=== PATIENT | male | born 1955 | race Caucasian/White ===

== ENCOUNTER 2024-02-01 10:58 | Outpatient (RCR) | payer OTHER, SELFPAY | END 2024-02-01 23:59 | disposition home or self-care (01) | LOC: RPT 10:58 | PROVIDERS: ATTENDING PHYSICIAN Family Medicine | DX: M76.01 Gluteal tendinitis, right hip (principal); M54.16 Radiculopathy, lumbar region; Z73.6 Limitation of activities due to disability; G89.29 Other chronic pain; M62.81 Muscle weakness (generalized) | CPT/HCPCS: 97010; 97110; 97162 ==

== ENCOUNTER 2024-02-24 08:53 | Outpatient (RCR) | payer OTHER, SELFPAY | END 2024-02-24 10:03 | disposition home or self-care (01) | LOC: RPT 08:53 | PROVIDERS: ATTENDING PHYSICIAN Family Medicine | DX: M76.01 Gluteal tendinitis, right hip (principal); M54.16 Radiculopathy, lumbar region; Z73.6 Limitation of activities due to disability; G89.29 Other chronic pain | CPT/HCPCS: 97010; 97110 ==

== ENCOUNTER → 2024-06-13 13:26 | Outpatient (REF) | payer OTHER, SELFPAY | LOC: RAD 13:26 | PROVIDERS: ATTENDING PHYSICIAN Internal Medicine; FAMILY PHYSICIAN Family Medicine | DX: M81.0 Age-related osteoporosis without current pathological fracture (principal); Z13.820 Encounter for screening for osteoporosis | CPT/HCPCS: 77080 ==